=== PATIENT | female | born 1990 ===

== ENCOUNTER 2024-03-22 17:12 | Inpatient (IN) | payer OTHER ==
[~2024-03-22] VITALS: Ht 157.5 cm; Wt 140.9 kg
[2024-03-22 19:17] LABS: Source, Urine Clean Catch
[2024-03-22 19:22] LABS: Appearance, Urine Hazy (Clear); Bilirubin, Urine Neg (Neg); Blood, Urine 1+ (Neg); Color, Urine Yellow (P-Yellow); Glucose Qualitative, Urine Neg (Neg); Ketones, Urine 4+ (Neg); Leukocyte Esterase, Urine Neg (Neg); Nitrite, Urine Neg (Neg); Protein, Urine 2+ (Neg); Specific Gravity, Urine 1.015 (1.003-1.022); Urobilinogen, Urine 2+ (Normal)
[2024-03-22 19:41] LABS: Bacteria Many /hpf; Squamous Epithelial Cells Few /hpf (Few)
[2024-03-22] MEDS ORDERED: Piperacillin/Tazobactam Sod 4.5 GM in NS 100 ML IV ONE (20:20)
[2024-03-22] MEDS ORDERED: NS 1,000 ML IV SCH (20:20)
[2024-03-22] MEDS ORDERED: FentaNYL Citrate 50 MCG/ML 2 ML Injection IV PRN (22:15)
[2024-03-22] MEDS ORDERED: Ondansetron HCl 2 MG / ML 2ML Vial IV PRN (22:15)
[2024-03-22] MEDS ORDERED: Metoclopramide HCl 5MG / ML 2ML Vial IV PRN (22:15)
[2024-03-22] MEDS ORDERED: FLU VACC TS2024-25(6MOS UP)/PF 45 MCG/0.5 ML SYRINGE IM ONE (22:15)
[2024-03-22] MEDS ORDERED: HYDROcodone 5-APAP 325 TAB PO PRN (22:15)
[2024-03-22] MEDS ORDERED: Lactated Ringer's 1,000 ML IV SCH (22:20)
[2024-03-22 23:25] VITALS: BP 137/63
[2024-03-23] VITALS (13 sets, daily range): BP systolic 108–131; BP diastolic 54–96
[2024-03-23] MEDS ORDERED: Acetaminophen 325 MG TABLET PO PRN (00:20)
[2024-03-23] MEDS ORDERED: HYDROcodone 5-APAP 325 TAB PO PRN (05:00)
--- NOTE | 2024-03-23 05:18 | NUR ---
SHIFT SUMMARY ADMIT THIS SHIFT FOR RUPTURED APPY. PATIENT IS AOX4, IND TO SBA FOR LINE CLEARANCE. NPO SINCE ADMIT. IVF RUNNING. PATIENT HAD FEVER ON ADMIT, 102.[address] PILLAI FOR TYLENOL. REPEAT TEMP 99.8. MEDICATED WITH 1 NORCO FOR PAIN. PLAN FOR SURGERY TODAY.
[2024-03-23] MEDS ORDERED: NS 250 ML IV PRN (05:50)
[2024-03-23] MEDS ORDERED: Piperacillin/Tazobactam Sod 4.5 GM in NS 100 ML IV SCH (06:00)
[2024-03-23 06:33] LABS: BASOPHILS ABSOLUTE AUTO 0.05 K/mm3 (0.00-0.23); BASOPHILS PERCENT AUTO 0 % (0-2); EOSINOPHILS ABSOLUTE AUTO 0.01 K/mm3 (0.00-0.68); EOSINOPHILS PERCENT AUTO 0 % (0-6); Hematocrit 38.4 % (33.0-51.0); Hemoglobin 12.2 g/dL (11.5-16.0); IMMATURE GRAN ABSOLUTE AUTO 0.17 K/mm3 (0.00-0.10); IMMATURE GRAN PERCENT AUTO 1 % (0-1); LYMPHOCYTES ABSOLUTE AUTO 1.46 K/mm3 (0.84-5.20); LYMPHOCYTES PERCENT AUTO 10 % (21-46); MONOCYTES ABSOLUTE AUTO 1.62 K/mm3 (0.16-1.47); MONOCYTES PERCENT AUTO 11 % (4-13); Mean Corpuscular HGB 29.3 pg (26.0-34.0); Mean Corpuscular HGB Conc 31.8 g/dL (31.5-36.5); Mean Corpuscular Volume 92 fL (80-100); Mean Platelet Volume 11.6 fL (9.1-12.4); NEUTROPHILS ABSOLUTE AUTO 11.44 K/mm3 (1.96-9.15); NEUTROPHILS PERCENT AUTO 78 % (41-73); Platelet Count 161 K/mm3 (150-400); RDW Coefficient Variation 14.2 % (11.7-14.2); Red Blood Cell Count 4.17 M/mm3 (3.80-5.20); White Blood Cell Count 14.75 K/mm3 (4.00-11.30)
[2024-03-23 06:46] LABS: Bun/Creatinine Ratio 11.5 (12.0-20.0); Calcium, Blood 8.8 mg/dL (8.5-10.1); Creatinine, Blood 0.7 mg/dL (0.40-1.00); Potassium, Blood 3.3 mmol/L (3.5-5.5)
[2024-03-23] MEDS ORDERED: Bupivacaine 0.5% HCl 5 MG/ML 30MLVIAL ONE (07:17)
[2024-03-23] MEDS ORDERED: Ondansetron HCl 2 MG / ML 2ML Vial ONE (07:35)
[2024-03-23] MEDS ORDERED: Dexamethasone Sod Phos 10 MG/ML 1ML VIAL ONE (07:35)
[2024-03-23] MEDS ORDERED: Ketorolac Tromethamine 30mg Vial ONE (07:35)
[2024-03-23] MEDS ORDERED: propofoL 40 ML IV ONE (07:35)
[2024-03-23] MEDS ORDERED: Rocuronium Bromide 10 MG/ML 5ML Injection IV ONE (07:35)
[2024-03-23] MEDS ORDERED: FentaNYL Citrate 50 MCG/ML 2 ML Injection ONE (07:36)
[2024-03-23] MEDS ORDERED: Sugammadex Sodium 200 MG/2ML SDV (100 MG/ML) ONE (07:36)
--- NOTE | 2024-03-23 07:50 | NUR ---
PT C/O HEADACHE AND FEELING FEBRILE AT APROX 0740. ORAL TEMP 103.3. PRIMARY RN NOTIFIED. 650MG TYLENOL GIVEN AFTER CHECKING WITH OR DUE TO NPO STATUS. PT TO OR AT APROX 0757.
--- NOTE | 2024-03-23 07:59 | NUR ---
PT PICKED UP BY [facility]
[2024-03-23] MEDS ORDERED: Dexmedetomidine HCL 200 MCG / 2 ML ONE (09:19)
[2024-03-23] MEDS ORDERED: FentaNYL Citrate 50 MCG/ML 2 ML Injection IV PRN ×4 (09:35→11:10)
[2024-03-23] MEDS ORDERED: Droperidol 5 mg/2 ml Vial IV PRN (09:40)
[2024-03-23] MEDS ORDERED: HYDROmorphone HCl/Pf 1MG SYR IV PRN (09:40)
[2024-03-23] MEDS ORDERED: Lactated Ringer's 1,000 ML IV SCH (11:10)
--- NOTE | 2024-03-23 19:16 | NUR ---
SHIFT SUMMARY POD0 LAP APPY, A/OX4, VSS, TOLERATING PO BUT HER DINNER TRAY MADE HER FEEL NAUSEATED, ABLE TO EAT HER JELLO AND CRACKERS WITH NO ISSUES. FANNY DRAIN PUTTING OUT SS DRAINAGE. NO ACUTE EVENTS THIS SHIFT, CALL LIGHT IN [facility].
[2024-03-24 04:54] VITALS: BP 102/69
--- NOTE | 2024-03-24 05:33 | NUR ---
SHIFT SUMMARY POD1 LAP APPY. X2 LAP SITES ARE C/D/I. FANNY SITE REMAINS C/D/I. MODERATE OUTPUT OF ABOUT 120MLS T/O THE NIGHT. CLOUDY PINK SS DRAINAGE NOTED. VSS, PT REPORTS BP IS SOFT COMPARED TO HER BASELINE. TOLLERATING PO INTAKE W/O EMESIS,PT REPORTS INTERMITTENT NAUSEA. IV ABX INFUSING PER ORDER. PT AMBULATING TO THE BATHROOM W/MIN ASSIST. PT MEDICATED FOR PAIN W/ NORCO AND REGLAN FOR NAUSEA. OVERALL, NO ACUTE EVENTS NOTED. PLAN FOR IV ABX
[2024-03-24 06:07] LABS: BASOPHILS ABSOLUTE AUTO 0.02 K/mm3 (0.00-0.23); BASOPHILS PERCENT AUTO 0 % (0-2); EOSINOPHILS PERCENT AUTO 0 % (0-6); Hematocrit 34.1 % (33.0-51.0); Hemoglobin 11.1 g/dL (11.5-16.0); IMMATURE GRAN ABSOLUTE AUTO 0.13 K/mm3 (0.00-0.10); IMMATURE GRAN PERCENT AUTO 1 % (0-1); LYMPHOCYTES ABSOLUTE AUTO 1.17 K/mm3 (0.84-5.20); LYMPHOCYTES PERCENT AUTO 9 % (21-46); MONOCYTES ABSOLUTE AUTO 1.29 K/mm3 (0.16-1.47); MONOCYTES PERCENT AUTO 10 % (4-13); Mean Corpuscular HGB 29.2 pg (26.0-34.0); Mean Corpuscular HGB Conc 32.6 g/dL (31.5-36.5); Mean Corpuscular Volume 90 fL (80-100); Mean Platelet Volume 11.5 fL (9.1-12.4); NEUTROPHILS PERCENT AUTO 80 % (41-73); Platelet Count 169 K/mm3 (150-400); RDW Coefficient Variation 14.3 % (11.7-14.2); RDW Standard Deviation 46.4 fL (35.1-46.3); White Blood Cell Count 13.01 K/mm3 (4.00-11.30)
[2024-03-24 06:35] LABS: Bun/Creatinine Ratio 17.5 (12.0-20.0); Calcium, Blood 8.2 mg/dL (8.5-10.1); Creatinine, Blood 0.57 mg/dL (0.40-1.00); Potassium, Blood 4.1 mmol/L (3.5-5.5)
[2024-03-24 07:10] VITALS: BP 111/70
--- NOTE | 2024-03-24 09:05 | NUR ---
AM ASSESSMENT PT AROUSED EASILY WITH VERBAL STIMULI DURING FOCUSED 8AM ASSESSMENT AT 0800. PT FELL BACK ASLEEP EASILY. INTO ROOM TO DO FULL AM ASSESSMENT AT 0906, PT REQUESTING THAT WE "JUST LET HER SLEEP LONG SHE CAN" EDUCATED ON HOURLY ROUNDING AND TOLD HIM I WILL BE BACK TO COMPLETE FULL ASSESSMENT AT APROX 1000. AGREEABLE
[2024-03-24 15:23] VITALS: BP 124/81
[2024-03-24 19:21] VITALS: BP 95/84
--- NOTE | 2024-03-24 20:07 | NUR ---
SHIFT SUMMARY PT POD 1 LAP APPY. LAP SITES X'S W/STERI STRIPS C/D/I, FANNY SITE AT UMBILICUS WITH BULKY DRESSING C/D/I. PT VOIDING W/O DIFFICULTY. REPORTS FLATUS, TOLERATING SMALL AMOUNT OF REGULAR DIET THIS EVENING. PAIN HAS BEEN WELL MANAGED WITH PO MEDICATION PER EMAR. PT HAS BEEN EDUCATED ON USE OF IS WELL AMBULATING, PT VERBALIZED UNDERSTANDING.. PT IS SALINE LOCKED BETWEEN Q6 ZOSYN. PLAN TO DC IN NEXT 24-48 HRS PER MD.
[2024-03-24 20:30] VITALS: BP 131/68
[2024-03-25 04:53] VITALS: BP 110/69
--- NOTE | 2024-03-25 05:04 | NUR ---
SHIFT SUMMARY POD2 LAP APPY. X2 LAP SITES ARE C/D/I. X1 FANNY SITE IS C/D/I. DRESSING CHANGED ON FANNY SITE. AREA CLEANSED W/ WOUND CLEANSER AND DRESSED W/SPLIT GAUZE AND MEDIPORE TAPE. VSS. PT SLEPT ON AND OFF T/O THE NIGHT. PT MEDICATED FOR PAIN W/ NORCO W/ GOOD RESULTS. PT TOLLERATING PO INTAKE W/O N/V. PT SHOWERED TONIGHT W/ MIN DIFFICULTY. MINIMAL OUTPUT NOTED FROM FANNY, LIGHT STRAW COLORED. IV ABX INFUSING PER EMAR. OVERALL, NO ACUTE EVENTS NOTED T/O THE NIGHT.
[2024-03-25 07:01] VITALS: BP 105/49
[2024-03-25 08:18] LABS: BASOPHILS ABSOLUTE AUTO 0.03 K/mm3 (0.00-0.23); BASOPHILS PERCENT AUTO 0 % (0-2); EOSINOPHILS ABSOLUTE AUTO 0.09 K/mm3 (0.00-0.68); EOSINOPHILS PERCENT AUTO 1 % (0-6); Hematocrit 31.7 % (33.0-51.0); Hemoglobin 10.2 g/dL (11.5-16.0); IMMATURE GRAN ABSOLUTE AUTO 0.12 K/mm3 (0.00-0.10); IMMATURE GRAN PERCENT AUTO 1 % (0-1); LYMPHOCYTES ABSOLUTE AUTO 2.23 K/mm3 (0.84-5.20); LYMPHOCYTES PERCENT AUTO 20 % (21-46); MONOCYTES ABSOLUTE AUTO 0.69 K/mm3 (0.16-1.47); MONOCYTES PERCENT AUTO 6 % (4-13); Mean Corpuscular HGB 29.1 pg (26.0-34.0); Mean Corpuscular HGB Conc 32.2 g/dL (31.5-36.5); Mean Corpuscular Volume 91 fL (80-100); Mean Platelet Volume 11.7 fL (9.1-12.4); NEUTROPHILS ABSOLUTE AUTO 8.09 K/mm3 (1.96-9.15); NEUTROPHILS PERCENT AUTO 72 % (41-73); Platelet Count 209 K/mm3 (150-400); RDW Coefficient Variation 14.3 % (11.7-14.2); RDW Standard Deviation 47.6 fL (35.1-46.3); White Blood Cell Count 11.25 K/mm3 (4.00-11.30)
[2024-03-25 09:20] VITALS: BP 127/66
[2024-03-25] MEDS ORDERED: HYDR1TAB94 PO (10:34)
[2024-03-25] MEDS ORDERED: AMOCLA875 PO (10:36)
[2024-03-25 14:53] VITALS: BP 139/67
--- NOTE | 2024-03-25 15:00 | NUR ---
DISCHARGE NOTE PT IS A/O X4, INDEPENDENT, AMBULATING, VOIDING APPROPRIATELY. TOLERATING REGULAR DIET. PAIN IS TOLERABLE W/ PAIN MEDS PER EMAR. PHYSICAL SCRIPTS GIVEN TO PT, COPIES IN THE CHART. DISCHARGE INSTRUCTIONS REVIEWED W/ PT, COPY GIVEN TO PT. VSS. DRESSINGS C/D/I, DR. PILLAI DC'D FANNY DRAIN THIS AM. PT DC'D IN STABLE CONDITION VIA WC TO PRIVATE RIDE HOME W/ BELONGINGS IN HAND.
[2024-03-25] MEDS ORDERED: Amoxicillin/Clavulanate K 875 MG Tab PO SCH (21:00)
== END 2024-03-25 15:00 | disposition home or self-care (01) | DRG 398 ==
LOC: ER 17:12 → ERHOLD 22:33 → SURS 22:33
PROVIDERS: Physician Assistant; ADMIT Surgery
PROC: 0DTJ4ZZ Resection of Appendix, Percutaneous Endoscopic Approach (ICD-10-PCS; principal; 2024-03-23 08:00)
DX: K35.32 Acute appendicitis with perforation, localized peritonitis, and gangrene, without abscess (principal); Z68.43 Body mass index [BMI] 50.0-59.9, adult; E66.01 Morbid (severe) obesity due to excess calories; R10.84 Generalized abdominal pain; Z98.51 Tubal ligation status; Z98.890 Other specified postprocedural states; Z91.040 Latex allergy status; Z79.899 Other long term (current) drug therapy
CPT/HCPCS: 36415; 74177; 80048; 80053; 81001; 83690; 84703; 85025; 87086; 88304; 96365-59; 99285-25; A9270; J1100; J1885; J2405; J2543; J2704; J2765; J3010; J7030; J7050; J7120; Q9967

== ENCOUNTER → 2024-03-22 | Outpatient (CLI) | payer OTHER ==
[~2024-03-22] MED LIST: AMOCLA875 PO; HYDR1TAB94 PO
[2024-03-22 15:49] LABS: BASOPHILS ABSOLUTE AUTO 0.04 K/mm3 (0.00-0.23); BASOPHILS PERCENT AUTO 0 % (0-2); EOSINOPHILS PERCENT AUTO 0 % (0-6); Hematocrit 40.1 % (33.0-51.0); Hemoglobin 13.3 g/dL (11.5-16.0); IMMATURE GRAN ABSOLUTE AUTO 0.09 K/mm3 (0.00-0.10); IMMATURE GRAN PERCENT AUTO 1 % (0-1); LYMPHOCYTES ABSOLUTE AUTO 1.17 K/mm3 (0.84-5.20); LYMPHOCYTES PERCENT AUTO 7 % (21-46); MONOCYTES ABSOLUTE AUTO 1.37 K/mm3 (0.16-1.47); MONOCYTES PERCENT AUTO 9 % (4-13); Mean Corpuscular HGB 29.4 pg (26.0-34.0); Mean Corpuscular HGB Conc 33.2 g/dL (31.5-36.5); Mean Corpuscular Volume 89 fL (80-100); Mean Platelet Volume 11.2 fL (9.1-12.4); NEUTROPHILS ABSOLUTE AUTO 13.28 K/mm3 (1.96-9.15); NEUTROPHILS PERCENT AUTO 83 % (41-73); Platelet Count 180 K/mm3 (150-400); RDW Coefficient Variation 14.2 % (11.7-14.2); RDW Standard Deviation 45.9 fL (35.1-46.3); Red Blood Cell Count 4.52 M/mm3 (3.80-5.20); White Blood Cell Count 15.95 K/mm3 (4.00-11.30)
[2024-03-22 15:59] LABS: Albumin, Blood 3.4 g/dL (3.4-5.0); Albumin/Globulin Ratio 0.7 (0.8-1.8); Bilirubin, Total 1.6 mg/dL (0.1-1.0); Calcium, Blood 8.8 mg/dL (8.5-10.1); Creatinine, Blood 0.88 mg/dL (0.40-1.00); Globulin, Blood 4.7 g/dL (2.2-4.0); Potassium, Blood 3.6 mmol/L (3.5-5.5); Total Protein, Blood 8.1 g/dL (6.4-8.2)
== END | disposition home or self-care (01) ==
LOC: LAB 15:44 → LAB SHORT 15:44
DX: R10.84 Generalized abdominal pain (principal)
CPT/HCPCS: 80053; 83690; 85025

== ENCOUNTER 2024-09-18 12:32 | Emergency (ER) | payer BC ==
[~2024-09-18] VITALS: Ht 160 cm; Wt 136.1 kg
== END 2024-09-18 19:43 | disposition home or self-care (01) ==
LOC: ER 12:32
DX: M25.461 Effusion, right knee (principal); M25.561 Pain in right knee; Z91.040 Latex allergy status
CPT/HCPCS: 73562-RT; 99283-25; A9270

== ENCOUNTER 2025-01-20 18:10 | Inpatient (IN) | payer BC ==
[~2025-01-20] VITALS: Ht 160 cm; Wt 133.8 kg
[2025-01-20] MEDS ORDERED: Ondansetron HCl 2 MG / ML 2ML Vial IV PRN ×2 (18:25→22:35)
[2025-01-20 18:57] LABS: BASOPHILS ABSOLUTE AUTO 0.05 K/mm3 (0.00-0.23); BASOPHILS PERCENT AUTO 1 % (0-2); EOSINOPHILS ABSOLUTE AUTO 0.06 K/mm3 (0.00-0.68); EOSINOPHILS PERCENT AUTO 1 % (0-6); Hematocrit 35.2 % (33.0-51.0); Hemoglobin 11.3 g/dL (11.5-16.0); IMMATURE GRAN ABSOLUTE AUTO 0.04 K/mm3 (0.00-0.10); IMMATURE GRAN PERCENT AUTO 1 % (0-1); LYMPHOCYTES ABSOLUTE AUTO 1.54 K/mm3 (0.84-5.20); LYMPHOCYTES PERCENT AUTO 18 % (21-46); MONOCYTES ABSOLUTE AUTO 0.91 K/mm3 (0.16-1.47); MONOCYTES PERCENT AUTO 10 % (4-13); Mean Corpuscular HGB Conc 32.1 g/dL (31.5-36.5); Mean Corpuscular Volume 88 fL (80-100); NEUTROPHILS ABSOLUTE AUTO 6.18 K/mm3 (1.96-9.15); NEUTROPHILS PERCENT AUTO 70 % (41-73); NRBC ABSOLUTE 0.00 K/mm3 (0.00-0.02); NRBC Auto 0.0 /100 WBC (0.0-0.2); Platelet Count 225 K/mm3 (150-400); RDW Coefficient Variation 14.3 % (11.7-14.2); RDW Standard Deviation 45.4 fL (35.1-46.3)
[2025-01-20 19:11] LABS: Alanine Aminotransfer (ALT/SGP 27.0 U/L (12-78); Albumin, Blood 3.5 g/dL (3.4-5.0); Albumin/Globulin Ratio 0.8 (0.8-1.8); Anion Gap 5.0 mmol/L (3-11); Aspartate Aminotrans (AST/SGOT 16.0 U/L (12-37); Bilirubin, Total 1.0 mg/dL (0.1-1.0); Blood Urea Nitrogen 5.0 mg/dL (8-24); CO2, Blood 30.0 mmol/L (21-32); Calcium, Blood 8.9 mg/dL (8.5-10.1); Chloride, Blood 104.0 mmol/L (98-108); Creatinine, Blood 0.68 mg/dL (0.40-1.00); Globulin, Blood 4.3 g/dL (2.2-4.0); Glucose, Blood 116.0 mg/dL (70-99); Potassium, Blood 3.3 mmol/L (3.5-5.5); Sodium, Blood 136.0 mmol/L (136-145); Total Protein, Blood 7.8 g/dL (6.4-8.2)
[2025-01-20] MEDS ORDERED: Ketorolac Tromethamine 15mg Vial IV ONE (19:40)
[2025-01-20] MEDS ORDERED: NS 1,000 ML IV SCH (19:40)
[2025-01-20 22:26] LABS: Source, Urine Clean Catch
[2025-01-20 22:32] LABS: Bilirubin, Urine Neg (Neg); Glucose Qualitative, Urine Neg (Neg); Ketones, Urine Neg (Neg); Leukocyte Esterase, Urine 3+ (Neg); Protein, Urine 2+ (Neg); Specific Gravity, Urine 1.005 (1.003-1.022); Urobilinogen, Urine NORM (Normal)
[2025-01-20] MEDS ORDERED: FLU VACC TS2025-26(6MOS UP)/PF 45 MCG/0.5 ML SYRINGE IM SCH (22:35)
[2025-01-20 22:36] LABS: Color, Urine Yellow (P-Yellow)
[2025-01-20 22:44] LABS: Red Blood Cells, Urine 0-2 /hpf (0-2); White Blood Cells, Urine TNTC /hpf (0-5)
[2025-01-21] MEDS ORDERED: Cefepime HCl 2,000 MG in NS 100 ML IV SCH
[2025-01-21 00:13] VITALS: BP 116/62
[2025-01-21 03:51] VITALS: BP 92/47
--- NOTE | 2025-01-21 04:22 | NUR ---
SHIFT SUMMARY PATIENT IS ALERT AND ORIENTED. PATIENT IS A RECENT ADMIT FROM ER. PATIENT HAS HAD NO COMPLAINTS OF PAIN, NAUSEA, SOB OR VOMITTING THIS SHIFT. PATIENT HAS BEEN RESTING SINCE ARRIVAL WITH NO COMPLAINTS. BED IN LOCKED AND LOWEST POSITION. CALL LIGHT IN PLACE.
[2025-01-21 04:38] VITALS: BP 114/64
[2025-01-21] MEDS ORDERED: NS 250 ML IV PRN (05:05)
[2025-01-21] MEDS ORDERED: CefTRIAXone Sodium 1,000 MG in NS 100 ML IV SCH (06:00)
[2025-01-21 07:21] VITALS: BP 125/67
[2025-01-21] MEDS ORDERED: Lactobacil 2-S.Thermo-Bifido 1 1 Cap PO SCH (09:00)
[2025-01-21 09:32] LABS: BASOPHILS ABSOLUTE AUTO 0.03 K/mm3 (0.00-0.23); BASOPHILS PERCENT AUTO 0 % (0-2); EOSINOPHILS ABSOLUTE AUTO 0.15 K/mm3 (0.00-0.68); EOSINOPHILS PERCENT AUTO 2 % (0-6); Hematocrit 31.7 % (33.0-51.0); Hemoglobin 10.5 g/dL (11.5-16.0); IMMATURE GRAN ABSOLUTE AUTO 0.04 K/mm3 (0.00-0.10); IMMATURE GRAN PERCENT AUTO 1 % (0-1); LYMPHOCYTES ABSOLUTE AUTO 0.92 K/mm3 (0.84-5.20); LYMPHOCYTES PERCENT AUTO 11 % (21-46); MONOCYTES ABSOLUTE AUTO 0.79 K/mm3 (0.16-1.47); MONOCYTES PERCENT AUTO 10 % (4-13); Mean Corpuscular HGB Conc 33.1 g/dL (31.5-36.5); Mean Corpuscular Volume 87 fL (80-100); NEUTROPHILS ABSOLUTE AUTO 6.38 K/mm3 (1.96-9.15); NEUTROPHILS PERCENT AUTO 77 % (41-73); NRBC ABSOLUTE 0.00 K/mm3 (0.00-0.02); NRBC Auto 0.0 /100 WBC (0.0-0.2); Platelet Count 222 K/mm3 (150-400); RDW Coefficient Variation 14.4 % (11.7-14.2); RDW Standard Deviation 46.0 fL (35.1-46.3)
[2025-01-21 10:14] LABS: Alanine Aminotransfer (ALT/SGP 22.0 U/L (12-78); Albumin, Blood 3.0 g/dL (3.4-5.0); Albumin/Globulin Ratio 0.8 (0.8-1.8); Anion Gap 7.0 mmol/L (3-11); Aspartate Aminotrans (AST/SGOT 13.0 U/L (12-37); Bilirubin, Total 0.6 mg/dL (0.1-1.0); Blood Urea Nitrogen 8.0 mg/dL (8-24); CO2, Blood 26.0 mmol/L (21-32); Calcium, Blood 8.4 mg/dL (8.5-10.1); Chloride, Blood 106.0 mmol/L (98-108); Creatinine, Blood 0.62 mg/dL (0.40-1.00); Globulin, Blood 3.9 g/dL (2.2-4.0); Glucose, Blood 183.0 mg/dL (70-99); Magnesium, Blood 2.3 mg/dL (1.6-2.4); Potassium, Blood 3.5 mmol/L (3.5-5.5); Sodium, Blood 135.0 mmol/L (136-145); Total Protein, Blood 6.9 g/dL (6.4-8.2)
[2025-01-21 10:19] LABS: Ferritin, Serum 107.0 ng/mL (8-252); Total Iron Binding Capacity 283.0 ug/dL (250-450)
[2025-01-21] MEDS ORDERED: Ondansetron 4 MG SoluTab MM ONE (13:10)
[2025-01-21] MEDS ORDERED: CefTRIAXone Sodium 1,000 MG in NS 100 ML IV ONE (14:00)
[2025-01-21] MEDS ORDERED: Ketorolac Tromethamine 30mg Vial IV PRN (14:05)
[2025-01-21 15:02] VITALS: BP 132/68
--- NOTE | 2025-01-21 18:38 | NUR ---
END OF SHIFT PATIENT RESTING IN BED. IND IN ROOM AND IN BED. A&O4, ABLE TO MAKE NEEDS KNOWN. MADONA PANTS IN PLACE WITH PAD, PATIENT HAD SOME BLEEDING WITH URINATION TODAY, UNSURE IF IT IS VAGINAL BLEEDING OR NOT. PATIENT WORRIED ABOUT KIDS, BELIEVES THEY ARE WITH A FAMILY FROM [place] BUT SHE HASNT BEEN ABLE TO CONTACT ANYONE YET. SOME PAIN AND MILD FEVER TODAY. NO OTHER CONCERNS FOR THIS SHIFT.
[2025-01-21 19:48] VITALS: BP 101/57
--- NOTE | 2025-01-22 04:18 | NUR ---
SHIFT SUMMARY PATIENT IS ALERT AND ORIENTED. PATIENT HAS HAD NO ACUTE EVENTS THIS SHIFT. IV FLUIDS INFUSED ORDERED. PATIENT HAS HAD NO COMPLAINTS OF PAIN, NAUSEA, SOB OR VOMITTING THIS SHIFT. PATIENT HAS BEEN IND IN ROOM. PATIENT HAS HAD BOUTS OF ANXIETY ABOUT KIDS WHEREABOUTS. BED IN LOCKED AND LOWEST POSITION. CALL LIGHT IN PLACE.
[2025-01-22 04:45] LABS: BASOPHILS ABSOLUTE AUTO 0.03 K/mm3 (0.00-0.23); BASOPHILS PERCENT AUTO 0 % (0-2); EOSINOPHILS ABSOLUTE AUTO 0.24 K/mm3 (0.00-0.68); EOSINOPHILS PERCENT AUTO 3 % (0-6); Hematocrit 31.6 % (33.0-51.0); Hemoglobin 10.1 g/dL (11.5-16.0); IMMATURE GRAN ABSOLUTE AUTO 0.06 K/mm3 (0.00-0.10); IMMATURE GRAN PERCENT AUTO 1 % (0-1); LYMPHOCYTES ABSOLUTE AUTO 2.35 K/mm3 (0.84-5.20); LYMPHOCYTES PERCENT AUTO 29 % (21-46); MONOCYTES ABSOLUTE AUTO 0.89 K/mm3 (0.16-1.47); MONOCYTES PERCENT AUTO 11 % (4-13); Mean Corpuscular HGB Conc 32.0 g/dL (31.5-36.5); Mean Corpuscular Volume 89 fL (80-100); NEUTROPHILS ABSOLUTE AUTO 4.57 K/mm3 (1.96-9.15); NEUTROPHILS PERCENT AUTO 56 % (41-73); NRBC ABSOLUTE 0.00 K/mm3 (0.00-0.02); NRBC Auto 0.0 /100 WBC (0.0-0.2); Platelet Count 240 K/mm3 (150-400); RDW Coefficient Variation 14.3 % (11.7-14.2); RDW Standard Deviation 47.0 fL (35.1-46.3)
[2025-01-22 05:01] LABS: Anion Gap 9.0 mmol/L (3-11); Blood Urea Nitrogen 6.0 mg/dL (8-24); CO2, Blood 27.0 mmol/L (21-32); Calcium, Blood 8.5 mg/dL (8.5-10.1); Chloride, Blood 107.0 mmol/L (98-108); Creatinine, Blood 0.67 mg/dL (0.40-1.00); Glucose, Blood 105.0 mg/dL (70-99); Potassium, Blood 3.6 mmol/L (3.5-5.5); Sodium, Blood 139.0 mmol/L (136-145)
[2025-01-22 05:05] VITALS: BP 103/56
[2025-01-22 07:48] VITALS: BP 111/71
[2025-01-22] MEDS ORDERED: Sod Ferric Gluc Complx/Sucrose 125 MG in NS 100 ML IV SCH (09:00)
[2025-01-22] MEDS ORDERED: CefTRIAXone Sodium 2,000 MG in NS 100 ML IV SCH (09:00)
[2025-01-22 15:02] VITALS: BP 129/71
--- NOTE | 2025-01-22 18:39 | NUR ---
ASKED PT WHEN HER LAST BM WAS. SHE SAID 7 DAYS AGO. 4 MINUTES AFTER WALKING OUT OF HER ROOM, SHE USED HER CALL LIGHT TO ASKE ME WHAT WE WERE GOING TO DO TO HELP HER HAVE A BM, THIS IS NOW A CONCERN FOR HER. WILL LET ON COMING RN AWARE OF PTS WISHES TO HAVE A BM. PT ALSO STATED EARLIER THAT SHE DOES NOT WANT A FLU SHOT AND WAS NEVER ASKED IF SHE WANTED ONE OR ALREADY HAD ONE. THIS WAS REMOVED FROM HER MEDICAITON LIST AT THIS TIME.
[2025-01-22 19:15] VITALS: BP 138/80
[2025-01-23 02:22] VITALS: BP 114/66
--- NOTE | 2025-01-23 05:44 | NUR ---
END OF SHIFT SUMMARY: A&Ox4. PLEASANT AND COOPERATIVE WITH CARE. CALLS APPROPRIATELY AND IS ABLE TO ADVOCATE NEEDS EFFECTIVELY. VSS. BREATHING EVEN AND UNLABORED c RA. CONTINENT OF BOWEL AND BLADDER; LBM 01/22/25. TOLERATING DIET. AMBULATES INDEPENDENTLY. MEDS WHOLE c FLUIDS. SLEPT MAJORITY OF SHIFT. NO ACUTE OVERNIGHT EVENTS. PAIN CONTROLLED s MEDS. BED IN LOWEST POSITION, CALL LIGHT WITHIN REACH, ALL NEEDS MET. REPORT TO ONCOMING NURSE.
[2025-01-23 07:19] VITALS: BP 130/76
[2025-01-23 09:58] LABS: IMMATURE RETIC FRACTION 29.5 % (2.3-16.0); RETIC HGB EQUIVALENT 24.2 pg (28.20-36.60); RETICULOCYTE ABSOLUTE 0.0499 M/mm3 (0.0200-0.1100); RETICULOCYTE COUNT PERCENT 1.43 % (0.50-2.50)
[2025-01-23 15:17] VITALS: BP 132/83
--- NOTE | 2025-01-23 16:19 | NUR ---
SHIFT SUMMARY: PATIENT IS A&OX4/INDEPENDENT. SHE MAKES NEEDS KNOWN/CALLS APPROPRIATELY. SHE CONTINUES TO GET IV ANTIBIOTICS AND IRON INFUSION. SHE IS IN HER BED, ALERT, NO SIGNS OR SYMPTOMS OF DISTRESS, PLAN OF CARE ONGOING.
[2025-01-23 19:32] VITALS: BP 134/93
[2025-01-23] MEDS ORDERED: Mag Hydrox/Al Hydrox/Simeth 18 ML,Lidocaine 2% Viscous Soln 9 ML,Atropine/Scopalam/Hyos... PO ONE (19:55)
[2025-01-24 04:13] VITALS: BP 120/70
[2025-01-24 04:57] LABS: Hematocrit 31.6 % (33.0-51.0); Hemoglobin 10.0 g/dL (11.5-16.0); Mean Corpuscular HGB Conc 31.6 g/dL (31.5-36.5); Mean Corpuscular Volume 88 fL (80-100); NRBC ABSOLUTE 0.00 K/mm3 (0.00-0.02); NRBC Auto 0.0 /100 WBC (0.0-0.2); Platelet Count 294 K/mm3 (150-400); RDW Coefficient Variation 14.2 % (11.7-14.2); RDW Standard Deviation 46.0 fL (35.1-46.3)
--- NOTE | 2025-01-24 05:13 | NUR ---
SHIFT SUMMARY PT A&Ox4 AND PLEASANT. AT START OF SHIFT, PT C/O CHEST TIGHTNESS. VS WNL AND EKG SHOWED NSR. HOSPITALIST NOTIFIED AND ORDER GIVEN FOR GI COCKTAIL. SYMPTOMS RESOLVED AND NO OTHER C/O PAIN. IND IN ROOM. VSS. BED IN LOWEST POSITION AND CALL LIGHT IN REACH.
[2025-01-24 05:17] LABS: BAND PERCENT MAN 2 % (0-8); BASOPHILS ABSOLUTE MAN 0.00 K/mm3 (0.00-0.23); BASOPHILS PERCENT MAN 0 % (0-2); EOSINOPHILS ABSOLUTE MAN 0.31 K/mm3 (0.00-0.68); EOSINOPHILS PERCENT MAN 4 % (0-6); LYMPHOCYTES ABSOLUTE MAN 2.42 K/mm3 (0.84-5.20); LYMPHOCYTES PERCENT MAN 31 % (21-46); METAMYELOCYTE ABSOLUTE MAN 0.15 K/mm3 (0.00-0.00); METAMYELOCYTE PERCENT MAN 2 % (0-0); MONOCYTES ABSOLUTE MAN 0.39 K/mm3 (0.16-1.47); MONOCYTES PERCENT MAN 5 % (4-13); MYELOCYTE ABSOLUTE MAN 0.15 K/mm3 (0.00-0.00); MYELOCYTE PERCENT MAN 2 % (0-0); NEUTROPHILS ABSOLUTE MAN 4.38 K/mm3 (1.96-9.15); SEG NEUTROPHILS PERCENT MAN 54 % (41-73)
[2025-01-24 05:33] LABS: Alanine Aminotransfer (ALT/SGP 22.0 U/L (12-78); Albumin, Blood 2.9 g/dL (3.4-5.0); Albumin/Globulin Ratio 0.7 (0.8-1.8); Anion Gap 5.0 mmol/L (3-11); Aspartate Aminotrans (AST/SGOT 12.0 U/L (12-37); Bilirubin, Total 0.3 mg/dL (0.1-1.0); Blood Urea Nitrogen 6.0 mg/dL (8-24); CO2, Blood 30.0 mmol/L (21-32); Calcium, Blood 8.9 mg/dL (8.5-10.1); Chloride, Blood 108.0 mmol/L (98-108); Creatinine, Blood 0.62 mg/dL (0.40-1.00); Globulin, Blood 4.2 g/dL (2.2-4.0); Glucose, Blood 98.0 mg/dL (70-99); Potassium, Blood 3.7 mmol/L (3.5-5.5); Sodium, Blood 139.0 mmol/L (136-145); Total Protein, Blood 7.1 g/dL (6.4-8.2)
[2025-01-24 07:25] VITALS: BP 136/70
[2025-01-24 09:25] LABS: HOMOCYSTEINE,TOTAL 12 umol/L (0-15)
[2025-01-24] MEDS ORDERED: AMOCLA875 PO (14:08)
[2025-01-24] MEDS ORDERED: VISBIOME 112.51 EACH PO (14:09)
[2025-01-24] MEDS ORDERED: ONDA4ODT MM (14:09)
--- NOTE | 2025-01-24 15:40 | NUR ---
DISCHARGE NOTE: PT EDUCATION AND INSTRUCTIONS PROVIDED PRIOR TO LEAVING. IV AND TELE REMOVED. PT GATHERED BELONGINGS IN ROOM. DENIED W/C, ESCORTED OUT ON FOOT WITH NEUROSURGICAL NURSE PRACTITIONER.
[2025-01-25 08:56] LABS: HAPTOGLOBIN 329 mg/dL (30-200)
[2025-01-27 07:25] LABS: MMA S/P,VITAMIN B12 STATUS 0.2 umol/L (0.00-0.40)
== END 2025-01-24 15:35 | disposition home or self-care (01) | DRG 690 ==
LOC: ER 18:10 → ERHOLD 22:32 → MEDS 22:32
PROVIDERS: Emergency Medicine; Family Medicine; Internal Medicine; ADMIT Student in an Organized Health Care Education/Training Program
DX: N10 Acute pyelonephritis (principal); R78.81 Bacteremia; N30.00 Acute cystitis without hematuria; B96.20 Unspecified Escherichia coli [E. coli] as the cause of diseases classified elsewhere; B95.1 Streptococcus, group B, as the cause of diseases classified elsewhere; E87.6 Hypokalemia; D50.9 Iron deficiency anemia, unspecified; D51.9 Vitamin B12 deficiency anemia, unspecified; N92.0 Excessive and frequent menstruation with regular cycle; Z91.040 Latex allergy status
CPT/HCPCS: 36415; 74177; 80048; 80053; 81001; 81025; 82607; 82728; 82746; 83010; 83090; 83540; 83550; 83605; 83615; 83735; 83921; 85025; 85045; 87040; 87077; 87086; 87147; 87186; 96374-59; 96375; 99285-25; A9270; J0692; J0696; J1885; J2405; J2916; J3480; J7030; J7050; Q9967